=== PATIENT | female | born 1970 ===

== ENCOUNTER 2019-01-06 11:08 | Outpatient (REF) | payer OTHER, SELFPAY ==
[2019-01-06 20:48] LABS: HCT 46.4 % (36.0-46.0); HGB 15.4 g/dL (12.0-15.5); Mean Corp. HGB Concentration 33.2 g/dL (32.0-36.0); Mean Corpuscular Hemoglobin 31.2 pg (27.0-33.0); Mean Corpuscular Volume 93.9 fL (80-95); Mean Platelet Volume 11.1 fL (8.0-11.0); Platelet Count 269 x1000/uL (130-400); RBC 4.94 m/cumm (4.00-5.20); RBC Distribution Width 12.4 % (11.7-14.6); White Blood Cell Count 9.42 k/cumm (4.4-10.8)
[2019-01-06 22:10] LABS: ALT 27 U/L (12-78); AST 18 U/L (15-37); Alkaline Phosphatase 82 U/L (46-116); Anion Gap 13.2 mmol/L (3-11); BUN 13 mg/dL (7-18); Bilirubin, Total 0.5 mg/dL (0.2-1.0); CO2 21.8 mmol/L (21.0-32.0); CREATININE 0.82 mg/dL (0.55-1.02); Calcium 9.2 mg/dL (8.5-10.1); Chloride 104 mmol/L (98-107); Glucose 104 mg/dL (70-100); Potassium 4.4 mmol/L (3.5-5.1); Sodium 139 mmol/L (136-145); Total Protein 7.9 g/dL (6.4-8.2)
[2019-01-09 08:34] LABS: Vitamin D 25 Total 19.1 ng/ml (30-100)
== END 2019-01-06 11:28 ==
LOC: NCHCN 11:08
PROVIDERS: PCP Family Medicine; Visit Provider Family Medicine
DX: Z00.00 Encounter for general adult medical examination without abnormal findings (principal); I10 Essential (primary) hypertension; R53.83 Other fatigue
CPT/HCPCS: 80053; 82306; 85027; 84443

== ENCOUNTER 2019-01-20 16:01 | Outpatient (REF) | payer OTHER, SELFPAY ==
[2019-01-20 21:14] LABS: Anion Gap 12.6 mmol/L (3-11); BUN 16 mg/dL (7-18); CO2 21.4 mmol/L (21.0-32.0); CREATININE 0.84 mg/dL (0.55-1.02); Calcium 9.6 mg/dL (8.5-10.1); Chloride 102 mmol/L (98-107); Glucose 93 mg/dL (70-100); Potassium 4.2 mmol/L (3.5-5.1); Sodium 136 mmol/L (136-145)
== END 2019-01-20 16:21 ==
LOC: NCHCN 16:01
PROVIDERS: PCP Family Medicine; Visit Provider Family Medicine
DX: I10 Essential (primary) hypertension (principal)
CPT/HCPCS: 80048

== ENCOUNTER 2021-08-05 03:03 | Outpatient (REF) | payer OTHER, SELFPAY ==
[2021-08-05 22:02] LABS: Hemoglobin A1C 5.5 % (<5.7)
[2021-08-05 22:09] LABS: ALT 22 U/L (14-59); AST 18 U/L (15-37); Albumin 3.9 g/dL (3.4-5.0); Alkaline Phosphatase 76 U/L (46-116); BUN 11 mg/dL (7-18); Bilirubin, Total 0.4 mg/dL (0.2-1.0); CREATININE 0.8 mg/dL (0.55-1.02); Calcium 9.2 mg/dL (8.5-10.1); Chloride 102 mmol/L (98-107); Glucose 88 mg/dL (74-106); Potassium 4.4 mmol/L (3.5-5.1); Sodium 137 mmol/L (136-145); Total Protein 7.6 g/dL (6.4-8.2)
[2021-08-07 00:47] LABS: Vitamin D 25 Total 33.3 ng/mL (30-100)
== END 2021-08-06 03:04 | disposition home or self-care (01) ==
LOC: NCHCN 03:03
PROVIDERS: PCP Family Medicine; Visit Provider Nurse Practitioner Family
DX: Z00.00 Encounter for general adult medical examination without abnormal findings (principal); R73.03 Prediabetes; E55.9 Vitamin D deficiency, unspecified; E66.9 Obesity, unspecified
CPT/HCPCS: 80053; 82306; 83036

== ENCOUNTER 2021-08-11 17:47 | Outpatient (REF) | payer OTHER, SELFPAY ==
--- NOTE | 2021-08-11 16:45 | SKI_PTH ---
PATIENT: Naina Lawler LOC: [facility]#:[id number] AGE/SX: 51/F ROOM: RE08/11/[address]: Maria De Jesus Cristobal : 1970 BED: DIS: 08/11/2021 SPEC #: [id number] RECD: 08/12/21 12:44 STATUS: ISRA RELyssa #: [id number] RYLAND: 08/11/21 16:[address]: Maria De Jesus Cristobal DEPT: Surgical Specimen RECD BY: Margie King ENTERED: 08/12/21 12:45 SP TYPE: POP DUENAS DR: Bradford Lentz Tissues: 1 - SKIN BIOPSY(SHAVE/PUNCH) Procedures: SKIN LEVEL 4 SPECIAL STAIN 1 Comments: [id number]
== END 2021-08-11 17:48 | disposition home or self-care (01) ==
LOC: NCHCN 17:47
PROVIDERS: PCP Family Medicine; Visit Provider Nurse Practitioner Family
DX: L30.8 Other specified dermatitis (principal)
CPT/HCPCS: 88305; 88312

== ENCOUNTER 2022-07-24 14:58 | Outpatient (REF) | payer OTHER, SELFPAY ==
--- NOTE | 2022-07-24 14:21 | PAPFT_PTH ---
PATIENT: Naina Lawler LOC: [facility]#:[id number] AGE/SX: 52/F ROOM: RE07/24/[address]: Bradford Lentz : 1970 BED: DIS: 07/24/2022 SPEC #: [id number] RECD: 07/27/22 13:06 STATUS: ISRA REQ #: [id number] RYLAND: 07/24/22 14:[address]: Bradford Lentz DEPT: [facility] Cytology RECD BY: Margie King Tissues: 1 - CX/ENDOCX FOR PAP SMEARS Procedures: PAP THIN PREP/[facility] Screening HPV DNA PROBE Comments: [id number]
[2022-07-24 22:00] LABS: ALT 24 U/L (14-59); AST 20 U/L (15-37); Albumin 3.9 g/dL (3.4-5.0); Alkaline Phosphatase 72 U/L (46-116); Anion Gap 11.7 mmol/L (3-11); BUN 13 mg/dL (7-18); Bilirubin, Total 0.7 mg/dL (0.2-1.0); CO2 23.3 mmol/L (21.0-32.0); CREATININE 0.7 mg/dL (0.55-1.02); Calcium 9.1 mg/dL (8.5-10.1); Calculated LDL 129 mg/dL (<100); Chloride 101 mmol/L (98-107); Cholesterol 212 mg/dL (<200); Estimated GFR 103.35 (mL/min/1.73m2); Glucose 99 mg/dL (74-106); HDL Cholesterol 71 mg/dL (40-60); Potassium 3.5 mmol/L (3.5-5.1); Sodium 136 mmol/L (136-145); Total Protein 8.2 g/dL (6.4-8.2); Triglyceride 64 mg/dL (<150)
[2022-07-24 22:01] LABS: Hemoglobin A1C 5.6 % (<5.7)
[2022-07-24 22:21] LABS: Vitamin D 25 Total 35.5 ng/mL (30-100)
== END 2022-07-24 14:59 | disposition home or self-care (01) ==
LOC: NCHCN 14:58
PROVIDERS: PCP Family Medicine; Visit Provider Family Medicine
DX: E55.9 Vitamin D deficiency, unspecified (principal); E66.9 Obesity, unspecified; R73.03 Prediabetes; Z00.00 Encounter for general adult medical examination without abnormal findings; Z12.4 Encounter for screening for malignant neoplasm of cervix; Z11.51 Encounter for screening for human papillomavirus (HPV)
CPT/HCPCS: 80053; 80061; 82306; 88142; 83036; 87624

== ENCOUNTER 2023-07-27 16:01 | Outpatient (REF) | payer OTHER, SELFPAY ==
[2023-07-27 14:50] LABS: HCT 44.8 % (36.0-46.0); MCH 31.4 pg (27.0-33.0); MCHC 33.5 % (32.0-36.0); MCV 94 fL (80-95); Platelet Count 357 10^3/uL (130-400); RBC 4.78 10^6/uL (3.93-5.22); RDW 11.6 % (11.7-14.6); RDW-SD 39.9 fL; WBC 8.33 10^3/uL (4.4-10.8)
[2023-07-27 15:31] LABS: Hemoglobin A1C 5.6 % (<5.7)
[2023-07-27 15:32] LABS: ALT 26 U/L (14-59); AST 20 U/L (15-37); Albumin 3.9 g/dL (3.4-5.0); Alkaline Phosphatase 72 U/L (46-116); Anion Gap 6.9 mmol/L (3-11); BUN 13 mg/dL (7-18); Bilirubin, Total 0.4 mg/dL (0.2-1.0); CO2 27.1 mmol/L (21.0-32.0); CREATININE 0.9 mg/dL (0.55-1.02); Calcium 9.7 mg/dL (8.5-10.1); Calculated LDL 138 mg/dL (<100); Chloride 103 mmol/L (98-107); Cholesterol 226 mg/dL (<200); Estimated GFR 75.97 (mL/min/1.73m2); Glucose 113 mg/dL (74-106); HDL Cholesterol 70 mg/dL (40-60); Potassium 4.4 mmol/L (3.5-5.1); Sodium 137 mmol/L (136-145); Total Protein 8.2 g/dL (6.4-8.2); Triglyceride 90 mg/dL (<150)
[2023-07-27 15:52] LABS: Vitamin D 25 Total 35.9 ng/mL (30-100)
--- OUTSIDE RECORDS SUMMARY | 2023-07-27 16:05 | XMS_ITS | CCD ---
Author Name Unknown Address [address] [place] [address] [phone] Organization Unknown Address [address] [place] [address] [phone] Care Team Providers Care Senior Health Consultant Name Role Phone JANETTE ORNELAS Attending Physician [phone] Vital Signs Unknown or Not Available. Allergies Unknown or Not Available. Procedures Unknown or Not Available. History of Immunizations Unknown or Not Available. Problems Unknown or Not Available. Results BASIC METABOLIC PANEL (BMP) - Collect Date/Time: 08/14/2021 12:01 Test Name Code Test Result Test Units Test Ref Rang e GLUCOSE 2345-7 105 mg/dL L=70 H=116 BUN 3094-0 14 mg/dL L=6 H=25 CREATININE 2160-0 0.82 mg/dL L=0.51 H=0.95 SODIUM SERUM 2951-2 132 mmol/L L=136 H=145 POTASSIUM SERUM 2823-3 3.9 mmol/L L=3.4 H=5 .2 CHLORIDE SERUM 2075-0 99 mmol/L L=96 H=110 CARBON DIOXIDE (CO2) 2028-9 25 mmol/L L=22 H=34 ANION GAP 45066-8 8.2 mmol/L CALCIUM SERUM 53838-8 9.3 mg/dL L=8.2 H=10. 2 AGE 51 years eGFR (non-Afr.Amer.) 24289-5 73 mL/min eGFR (Afr-[place]orese) 25591-3 89 mL/min Active Medications Unknown or Not Available. Medications Administered During Visit Unknown or Not Available. Encounters Encounter Diagnosis Diagnosis Code Start Date Essential hypertension [id number] Social History Smoking Status Code Start Date End Date Former smoker [id number] 1985 1997 Patient Decision Aids Unknown or Not Available. Discharge Instructions You were admitted to [facility] on 08/14/2021 11:39 with a principal diagnosis of Essential (primary) hypertension You had the following tests done:BASIC METABOLIC PANEL (BMP) You were discharged from [facility] on 08/14/2021 11:39 Should you have any questions prior to discharge, please contact a member of your healthcare team. If you have left the hospital and have any questions, please contact your primary care physician. Chief Complaint and Reason For Visit Unknown or Not Available. Function Status Unknown or Not Available. Plan of Care Unknown or Not Available. Referral/Transition of Care Unknown or Not Available.
--- OUTSIDE RECORDS SUMMARY | 2023-07-27 16:05 | XMS_ITS | CCD ---
Author Name Unknown Address [address] [place] [address] [phone] Organization Unknown Address [address] [place] [address] [phone] Care Team Providers Care Human Resources Talent Manager Name Role Phone JANETTE ORNELAS Attending Physician [phone] Vital Signs Unknown or Not Available. Allergies Unknown or Not Available. Procedures Unknown or Not Available. History of Immunizations Unknown or Not Available. Problems Unknown or Not Available. Results BASIC METABOLIC PANEL (BMP) - Collect Date/Time: 08/22/2021 10:31 Test Name Code Test Result Test Units Test Ref Rang e GLUCOSE 2345-7 111 mg/dL L=70 H=116 BUN 3094-0 14 mg/dL L=6 H=25 CREATININE 2160-0 0.88 mg/dL L=0.51 H=0.95 SODIUM SERUM 2951-2 133 mmol/L L=136 H=145 POTASSIUM SERUM 2823-3 4.0 mmol/L L=3.4 H=5 .2 CHLORIDE SERUM 2075-0 99 mmol/L L=96 H=110 CARBON DIOXIDE (CO2) 2028-9 25 mmol/L L=22 H=34 ANION GAP 92538-1 9.1 mmol/L CALCIUM SERUM 49462-3 9.4 mg/dL L=8.2 H=10. 2 AGE 51 years eGFR (non-Afr.Amer.) 30281-4 67 mL/min eGFR (Afr-Italian) 58773-0 82 mL/min Active Medications Unknown or Not Available. Medications Administered During Visit Unknown or Not Available. Encounters Encounter Diagnosis Diagnosis Code Start Date Hypo-osmolality and or hyponatremia [id number] 08/22/2021 Social History Smoking Status Code Start Date End Date Former smoker [id number] 1985 1997 Patient Decision Aids Unknown or Not Available. Discharge Instructions You were admitted to [facility] on 08/22/2021 10:17 with a principal diagnosis of Hypo-osmolality and hyponatremia You had the following tests done:BASIC METABOLIC PANEL (BMP) You were discharged from [facility] on 08/22/2021 10:17 Should you have any questions prior to [...]
== END 2023-07-27 16:02 | disposition home or self-care (01) ==
LOC: NCHCN 16:01
PROVIDERS: PCP Family Medicine; Visit Provider Family Medicine
DX: Z00.00 Encounter for general adult medical examination without abnormal findings (principal); R73.03 Prediabetes; E55.9 Vitamin D deficiency, unspecified; D75.89 Other specified diseases of blood and blood-forming organs; E66.9 Obesity, unspecified
CPT/HCPCS: 80053; 80061; 82306; 85027; 83036

== ENCOUNTER 2024-11-02 09:25 | Outpatient (REF) | payer OTHER, SELFPAY ==
[2024-11-02 15:53] LABS: Anion Gap 10.8 mmol/L (3-11); BUN 15 mg/dL (7-18); CO2 27.2 mmol/L (21.0-32.0); Calcium 9.2 mg/dL (8.5-10.1); Chloride 105 mmol/L (98-107); Estimated GFR 66.53 (mL/min/1.73m2); Glucose 116 mg/dL (74-106); Potassium 4.3 mmol/L (3.5-5.1); Sodium 143 mmol/L (136-145); Vitamin D 25 Total 25 ng/mL (30-100)
== END 2024-11-02 09:26 | disposition home or self-care (01) ==
LOC: NCHCN 09:25
PROVIDERS: PCP Family Medicine; Visit Provider Family Medicine
DX: Z00.00 Encounter for general adult medical examination without abnormal findings (principal)
CPT/HCPCS: 80048; 82306